=== PATIENT | male | born 1955 | race Hispanic/Latino ===

== ENCOUNTER 2022-10-20 18:30 | Inpatient (IN) | payer OTHER ==
[2022-10-20] VITALS (7 sets, daily range): BP systolic 130–155; BP diastolic 71–99
[~2022-10-20] VITALS: Ht 165.1 cm; Wt 61.0 kg
--- NOTE | 2022-10-20 18:35 | NUR ---
PT WHEELED TO ROOM
--- NOTE | 2022-10-20 19:12 | NUR ---
PT STATES HE WAS TOLD HE HAS DIABETES TYPE II BUT WAS THEN TOLD HE NO LONGER HAD IT AFTER TWO MONTHS.
[2022-10-20 19:24] LABS: BASO% 0.4 % (0-3); HEMATOCRIT 47.1 % (39.0-50.0); IMMATURE GRANULOCYTES 0.1 % (0.0-5.0); LYMPH% 26.3 % (15-41); MEAN CELL VOLUME 82.2 fL CALC (80.0-100.0); MEAN CORPUSCULAR HGB 26.2 pG CALC (26.0-32.0); MEAN CORPUSCULAR HGB CONC 31.8 g/dL CAL (32.0-36.0); MONO% 7.8 % (2-13); NEUT# 4.25 thou/uL (1.82-7.42); NEUT% 60.4 % (42-76); RED BLOOD COUNT 5.73 mill/uL (4.70-6.10); RED CELL DISTRI WIDTH 11.9 % (11.5-15.5)
[2022-10-20 19:41] LABS: ALBUMIN 4.2 g/dL (3.2-5.0); ALKALINE PHOSPHATASE 80 u/l (38-126); ANION GAP 10 (6-22 (CALC)); BILIRUBIN, TOTAL 0.3 mg/dL (0.2-1.3); BUN 22 mg/dL (8-23); BUN/CREATININE RATIO 24 (12-20 (CALC)); C-REACTIVE PROTEIN 2.2 mg/dL (0-0.9); CARBON DIOXIDE 31 mmol/l (22-30); CHLORIDE 100 mmol/l (95-108); CREATININE 0.9 mg/dL (0.7-1.3); GFR FOR AFR.AMER. > 60 ML/MIN (>=60 (CALC)); GFR OTHER RACES > 60 ML/MIN (>=60 (CALC)); POTASSIUM 4.6 mmol/l (3.5-5.1); SGOT/AST 21 u/l (19-48); SODIUM 137 mmol/l (137-146); TOTAL PROTEIN 8.5 g/dL (6.3-8.2)
--- NOTE | 2022-10-20 20:04 | NUR ---
PT LAYING IN BED, NO DISTRESS NOTED. FAMILY AT BEDSIDE.
--- NOTE | 2022-10-20 21:00 | NUR ---
PT LAYING IN BED, NO DISTRESS NOTED
--- NOTE | 2022-10-20 21:44 | NUR ---
CALLED AND SPOKE WITH ALBARO IN [facility] FLOOR AND GAVE PT REPORT. PT TRANSPORTED TO [facility] ROOM 274.
--- NOTE | 2022-10-20 22:00 | NUR ---
RECIEVED ADMISSION REPORT FROM ER NURSE. ER NURSE ARRIVED WITH PT VIA STRETCHER. PT WAS A+Ox3 AND AWARE OF ADMISSION. PT LAYED IN BED AND FULL ASSESSMENT WAS CONDUCTED. HX WAS RECEIVED AND PT STATES THAT THERE IS NO PAIN OR DISTRESS AT THIS TIME. ADVISED PT OF STAFF FOR THE NIGHT AND ORIENTATED TO CALL LIGHT SYSTEM AND TO ROOM. PT IS COMFORTABLE AND HAS NO COMPLAINTS AT THIS TIME. CALL LIGHT WITHIN REACH AND SAFETY PRECAUTIONS IN PLACE.
--- NOTE | 2022-10-21 00:10 | NUR ---
PT IS IN BED SLEEPING COMFORTABLY. PT SHOWS NO SIGNS OF PAIN OR DISTRESS AT THIS MOMENT. CALL LIGHT WITHIN REACH AND SAFETY PRECAUTIONS IN PLACE.
--- NOTE | 2022-10-21 03:11 | NUR ---
PT RESTING ON BED. NO DISTRESS NOTED. PT DENIES PAIN AT THIS TIME.. IV SITE INFUSING FLUIDS PER ORDER. EMPTIED URINAL CONTENTS; 300 MLS OF CLEAR, YELLOW URINE. SAFETY PRECAUTIONS IN PLACE WITH CALL LIGHT IN REACH.
[2022-10-21 03:38] VITALS: BP 147/82
[2022-10-21 05:30] LABS: BASO% 0.5 % (0-3); EOS% 6.4 % (0-8); HEMATOCRIT 43.8 % (39.0-50.0); HEMOGLOBIN 14.2 g/dl (14.0-18.0); IMMATURE GRANULOCYTES 0.2 % (0.0-5.0); LYMPH% 23.9 % (15-41); MEAN CORPUSCULAR HGB 26.6 pG CALC (26.0-32.0); MEAN CORPUSCULAR HGB CONC 32.4 g/dL CAL (32.0-36.0); MONO% 7.7 % (2-13); NEUT# 3.82 thou/uL (1.82-7.42); NEUT% 61.3 % (42-76); RED BLOOD COUNT 5.34 mill/uL (4.70-6.10); RED CELL DISTRI WIDTH 11.9 % (11.5-15.5)
[2022-10-21 05:46] LABS: ALBUMIN 3.6 g/dL (3.2-5.0); ALKALINE PHOSPHATASE 72 u/l (38-126); ANION GAP 13 (6-22 (CALC)); BILIRUBIN, TOTAL 0.4 mg/dL (0.2-1.3); BUN 18 mg/dL (8-23); BUN/CREATININE RATIO 28 (12-20 (CALC)); CARBON DIOXIDE 27 mmol/l (22-30); CHLORIDE 101 mmol/l (95-108); CREATININE 0.7 mg/dL (0.7-1.3); GFR FOR AFR.AMER. > 60 ML/MIN (>=60 (CALC)); GFR OTHER RACES > 60 ML/MIN (>=60 (CALC)); MAGNESIUM 1.9 mg/dL (1.6-2.3); POTASSIUM 4.6 mmol/l (3.5-5.1); SGOT/AST 18 u/l (19-48); SODIUM 136 mmol/l (137-146)
--- NOTE | 2022-10-21 08:00 | NUR ---
PT LAYING IN BED WITH HOB, ALERT AND ORIENTED X 3 , PT HAS NO C/O PAIN AT THIS TIME. LUNG SOUNDS CLEAR THROUGHOUT. PT HAS IV TO LAC CLEAN AND INACT WITH NS @ 50ML/HR INFUSING. PT AMBULATES WELL TO BATHROOM FOR TOILETING NEEDS, PT ALSO HAS URINAL AT BEDSIDE. LEFT FOOT AND LLE WITH +1 EDEMA NOTED, ENCORAGED PT TO ELEVATE ON PILLOWS. 3RD TOE ON LEFT FOOT SWOLLEN AND SORE NOTED WITH NO DRAINAGE AT THIS TIME TIME, DR. WALLACE ON CONSULT. PT HAS CALL LIGHT WITHIN REACH. WILL CONTINUE TO MONITOR PT.
[2022-10-21 08:33] VITALS: BP 131/72
--- NOTE | 2022-10-21 11:15 | NUR ---
S: ABILIO REEDER is a 66 M who presents with cellulitis and osteomylitis of left foot. All medications in patient's chart were reviewed. O: VS: BP 131/72mmHg, P 62bpm, RR 17bpm,T 97.6 F W 61kg, HT 65in, Scr 0.7mg/dL,CrCl 63.5ml/min A: Blood culture is pending. P: Patient is on zosyn 3.375 GM IV Q6H. Vancomycin ordered for pharmacy to dose. Start Vancomycin 750 MG IV Q12H. Vancomycin trough is drawn before the 4th dose on 10/22/2022 @2130. Vancomycin goal trough is between 15-20 mcg/ml. Pharmacy will follow and or advise on antibiotics use as needed.
--- NOTE | 2022-10-21 12:00 | NUR ---
PT SITTING UP IN ON SIDE OF BED, EATING LUNCH. PT ALERT AND ORIENTED X3. PT HAS NO C/O PAIN AT THIS TIME. IV SITE TO LAC CLEAN AND INTACT WITH NS @ 50 ML/HR. PT HAS NO CHANGE IN STATUS AT THIS TIME. CALL LIGHT WITHIN REACH.
[2022-10-21 14:35] VITALS: BP 155/85
[2022-10-21 15:03] VITALS: BP 155/85
--- NOTE | 2022-10-21 16:00 | NUR ---
PT IN BED AWAKE, ALERT AND ORIENTED X 3. FAMILY IN ROOM. PT HAS NO C/O PAIN AT THIS TIME. REVIEWED SURGICAL CONSENT AND SIGNED CONSENTS WITH PT USING NELDA JAUREGUI MAINTENANCE TECHNICIAN 3RD SHIFT. PT HAS CALL LIGHT WITHIN REACH
[2022-10-21 18:59] VITALS: BP 130/70
--- NOTE | 2022-10-21 19:17 | NUR ---
BEDSIDE REPORT RECEIVED FROM OFF GOING NURSE. PATIENT IS AWAKE AND ALERT. SPEAKS MINIMAL CHADIAN BUT WAS ABLE TO EFFECTIVELY COMMUNICATE NO PAIN AT THIS TIME. CALL LIGHT WITHIN REACH.
--- NOTE | 2022-10-21 20:26 | NUR ---
THIS WRTER MADE AWARE THAT PATIENT IS ASKING TO GO HOME. SECURITY SYSTEMS INSTALLER IN ROOM SPEAKING WITH PATIENT IN DIVEHI. DIVEHI VERSION OF AMA FROM PROVIDED TO PATIENT AND HE WAS ABLE TO SIGN AND VERBALIZES UNDERSTANDING. CALL PLACED TO MD TO MAKE HIM AWARE. CURRENTLY AWAITING RETURN CALL AFTER MESSAGE WAS LEFT. PATIENT REQUESTED A TAXI WHICH HAS BEEN PROVIDED. IV ACCESS DISCONTINUED. PATIENT ASSISTED TO TAXI BY STAFF VIA WHEELCHAIR AT THIS TIME.
--- NOTE | 2022-10-21 20:34 | NUR ---
AMA NOTE PT REQUESTING TO SIGN OUT AMA. STATES HIS SISTER IS A DOCTOR FROM [place] AND WILL BE ARRIVING AT AROUND 0300 AND WANTS TO EXAMINE HIS FOOT. OFFERED TO PT THAT HIS SISTER IS WELCOMED TO COME IN AND SEE HIM AT ANY TIME, PT RESPONDS WITH "SHE'LL BE TO TIRED TO COME HERE". RISKS DISCUSSED AT LENGTH WITH PATIENT UP TO WORSENING OF INFECTION, LOSS OF FOOT AND . PT AWARE HE HAS SURGERY SCHEDULED TOMORROW AND SHOULD HE DECIDE TO COME BACK HE WOULD HAVE TO BE READMITTED THROUGH ER AND IS LIKELY TO LOSE HIS SPOT. PT VERBALIZES UNDERSTANDING OF ALL DISCUSSED RISKS AND CONTINUES TO INSIST ON SIGNING OUT. PT SIGNS RELEASE, WITNESSED BY MYSELF AND PRIMARY NURSE Kate NI RN. PT LEAVES TO HOME VIA TAXI. NURSING [employer] Raúl JUAREZ RN MADE AWARE, DR. ADAMS MADE AWARE.
--- NOTE | 2022-10-21 20:45 | NUR ---
Patient decides to leave AMA. Multiple attempts made to ecourage patient to remain here for continued treatment. Explained to patient all risks of leaving against medical advice including . Pt verbalized understanding of all risks. Pt also encouraged to return to [facility] at any time, especially if symptoms continue or become worse. Pt verbalized understanding. DR. ALLISON AND NURSING AUTO APPRENTICE MECHANIC AWARE.
== END 2022-10-21 20:40 | disposition left against medical advice (07) | DRG 638 ==
LOC: ED 18:30 → ED-I 20:44 → ED 20:54 → MS2 20:55
PROVIDERS: Nurse Practitioner; ADMIT Internal Medicine; ATTEND Internal Medicine
DX: E11.69 Type 2 diabetes mellitus with other specified complication (principal); L02.612 Cutaneous abscess of left foot; L03.116 Cellulitis of left lower limb; M86.8X7 Other osteomyelitis, ankle and foot; S92.512A Displaced fracture of proximal phalanx of left lesser toe(s), initial encounter for closed fracture; S91.205A Unspecified open wound of left lesser toe(s) with damage to nail, initial encounter; E11.65 Type 2 diabetes mellitus with hyperglycemia; W20.8XXA Other cause of strike by thrown, projected or falling object, initial encounter; Z20.822 Contact with and (suspected) exposure to COVID-19
CPT/HCPCS: J3370